=== PATIENT | male | born 1960 | race African-American/Black ===

== ENCOUNTER 2018-06-29 17:50 | Emergency (ER) | payer BC ==
[~2018-06-29] VITALS: Ht 175.3 cm; Wt 102.5 kg
[2018-06-29 18:00] VITALS: Ht 175.3 cm; Wt 102.5 kg
[2018-06-29 20:03] LABS: CALCIUM 9.2 mg/dL (8.5-10.1); CARBON DIOXIDE 31.5 mmol/L (21-32); CREATININE SERUM 1.4 mg/dL (0.7-1.3); POTASSIUM SERUM 3.6 mmol/L (3.5-5.1)
[2018-06-29 20:08] LABS: ALBUMIN 4.2 g/dL (3.4-5.0); BASOPHIL % 0.1 % (0-2); BILIRUBIN TOTAL 0.4 mg/dL (0.20-1.00); PLATELET COUNT 202 x10^3mcL (130-400); RED CELL DISTRIBUTION WIDTH 14.3 % (11.5-14.5); TOTAL PROTEIN, SERUM 8.8 g/dL (6.4-8.2)
[2018-06-29 20:59] VITALS: BP 141/90
== END 2018-06-29 20:58 | disposition home or self-care (01) ==
LOC: ED 17:50
PROVIDERS: Emergency Medicine
DX: R07.89 Other chest pain (principal); I10 Essential (primary) hypertension; Z85.46 Personal history of malignant neoplasm of prostate; R20.2 Paresthesia of skin
CPT/HCPCS: 36415; Q0092